=== PATIENT | female | born 1980 | race Two or more races ===

== ENCOUNTER 2017-08-15 09:17 | Day surgery (SDC) | payer OTHER ==
[~2017-08-15 09:17] MED LIST: IBUP800 PO
[2017-08-15 09:50] LABS: BASOPHILS ABSOLUTE AUTO 0.04 K/mm3 (0.00-0.23); BASOPHILS PERCENT AUTO 1 % (0-2); EOSINOPHILS PERCENT AUTO 2 % (0-6); Hemoglobin 12.8 g/dL (11.5-16.0); IMMATURE GRAN ABSOLUTE AUTO 0.02 K/mm3 (0.00-0.10); IMMATURE GRAN PERCENT AUTO 0 % (0-1); LYMPHOCYTES ABSOLUTE AUTO 1.52 K/mm3 (0.84-5.20); LYMPHOCYTES PERCENT AUTO 24 % (21-46); MONOCYTES ABSOLUTE AUTO 0.44 K/mm3 (0.16-1.47); MONOCYTES PERCENT AUTO 7 % (4-13); Mean Corpuscular HGB 30.8 pg (26.0-34.0); Mean Corpuscular HGB Conc 34.6 g/dL (31.5-36.5); Mean Corpuscular Volume 89 fL (80-100); Mean Platelet Volume 9.8 fL (9.1-12.4); NEUTROPHILS ABSOLUTE AUTO 4.26 K/mm3 (1.96-9.15); NEUTROPHILS PERCENT AUTO 67 % (41-73); Platelet Count 228 K/mm3 (150-400); RDW Coefficient Variation 11.8 % (11.7-14.2); RDW Standard Deviation 38.1 fL (35.1-46.3); Red Blood Cell Count 4.16 M/mm3 (3.80-5.20); White Blood Cell Count 6.38 K/mm3 (4.00-11.30)
[2017-08-15] MEDS ORDERED: Verotin-Gr Cap1 EACH PO (10:11)
[2017-08-15] MEDS ORDERED: FISH OIL 1,0001 EAC1 PO (10:11)
[2017-08-15] MEDS ORDERED: CALCA500S6 PO (10:12)
== END 2017-08-15 14:06 | disposition home or self-care (01) ==
LOC: ORSCMMR 09:17
PROVIDERS: Obstetrics & Gynecology
PROC: 10A07Z6 Abortion of Products of Conception, Vacuum, Via Natural or Artificial Opening (ICD-10-PCS; principal; 2017-08-15 11:45)
DX: O02.1 Missed abortion (principal); Z01.812 Encounter for preprocedural laboratory examination; Z01.818 Encounter for other preprocedural examination
CPT/HCPCS: 36415; 84702; 85025; 86850; 86900; 86901; 88305; J0690; J1100; J1885; J2210; J2250; J2405; J3010; J7120

== ENCOUNTER 2018-08-05 03:56 | Inpatient (IN) | payer OTHER ==
[~2018-08-05] VITALS: Ht 165.1 cm; Wt 84.0 kg
[~2018-08-05 03:56] MED LIST changes: +CALCA500S6 PO; +FISH OIL 1,0001 EAC1 PO; +Verotin-Gr Cap1 EACH PO
[2018-08-06 06:27] LABS: BASOPHILS ABSOLUTE AUTO 0.04 K/mm3 (0.00-0.23); BASOPHILS PERCENT AUTO 0 % (0-2); EOSINOPHILS ABSOLUTE AUTO 0.05 K/mm3 (0.00-0.68); EOSINOPHILS PERCENT AUTO 1 % (0-6); Hematocrit 34.9 % (33.0-51.0); Hemoglobin 11.7 g/dL (11.5-16.0); IMMATURE GRAN ABSOLUTE AUTO 0.06 K/mm3 (0.00-0.10); IMMATURE GRAN PERCENT AUTO 1 % (0-1); LYMPHOCYTES ABSOLUTE AUTO 2.41 K/mm3 (0.84-5.20); LYMPHOCYTES PERCENT AUTO 23 % (21-46); MONOCYTES ABSOLUTE AUTO 0.81 K/mm3 (0.16-1.47); MONOCYTES PERCENT AUTO 8 % (4-13); Mean Corpuscular HGB 32.4 pg (26.0-34.0); Mean Corpuscular HGB Conc 33.5 g/dL (31.5-36.5); Mean Corpuscular Volume 97 fL (80-100); Mean Platelet Volume 11.6 fL (9.1-12.4); NEUTROPHILS ABSOLUTE AUTO 7.26 K/mm3 (1.96-9.15); NEUTROPHILS PERCENT AUTO 68 % (41-73); Platelet Count 123 K/mm3 (150-400); RDW Coefficient Variation 12.6 % (11.7-14.2); RDW Standard Deviation 43.9 fL (35.1-46.3); Red Blood Cell Count 3.61 M/mm3 (3.80-5.20); White Blood Cell Count 10.63 K/mm3 (4.00-11.30)
--- NOTE | 2018-08-06 15:25 | NUR ---
CONSULT. MOM IS CONCERNED THAT BABY IS NOT FEEDING FOR LONG ENOUGH TIME PERIODS. INSTRUCT IN CHANGES TO EXPECT DURING THE FIRST WEEK WITH BABY AND WITH FEEDINGS AND REFERRED TO PAGE 18 OF BF BOOKLET FOR PHOTOS AND INFORMATION. MOM IS EXPERIENCED WITH BF, INSTRUCT IN WIDENING LATCH FOR GREATER COMFORT. STATES BABY IS BF WELL AND SHE HEARS HER SWALLOWING. QUESTIONS ANSWERED. MOM IS VERY LOVING WITH BABY.
--- NOTE | 2018-08-06 18:59 | NUR ---
CHANGE OF SHIFT CARING FOR SELF AND BABY INDEPENDANTLY. NO COMPLAINTS. REPORT TO ONCOMING SHIFT.
--- NOTE | 2018-08-07 10:25 | NUR ---
D/C HOME WITH BABY
--- NOTE | 2018-08-07 10:57 | NUR ---
FOLLOW UP. NOW AT 9% WT LOSS AND MOMS MILK IS STARTING TO COME IN, BREASTS LINARES THAN YESTERDAY. INSTRUCT/DEMO FURTHER WIDENING OF LATCH FOR BETTER MILK TRANSFER AND SWALLOW RATE DID INCREASE. BABY IS SELF WAKING AND WANTING TO BF OFTEN NOW AND INSTRUCT PARENTS TO BF HER OFTEN SHE DEMANDS AND WILL DO WT CHECK IN 2 DAYS. HANDLING BABY WELL, BOTH PARENTS LOVIGN.
== END 2018-08-07 11:00 | disposition home or self-care (01) | DRG 807 ==
LOC: BC 03:56 → OBS 03:56 → BC 04:06
PROVIDERS: ADMIT Nurse Practitioner Obstetrics & Gynecology
PROC: 10E0XZZ Delivery of Products of Conception, External Approach (ICD-10-PCS; principal; 2018-08-06)
DX: O24.420 Gestational diabetes mellitus in childbirth, diet controlled (principal); Z37.0 Single live birth; O99.824 Streptococcus B carrier state complicating childbirth; Z3A.39 39 weeks gestation of pregnancy; O62.3 Precipitate labor
CPT/HCPCS: 36415; 85025; J0290; J2590